=== PATIENT | male | born 1990 | race Caucasian/White ===

== ENCOUNTER 2018-01-11 15:27 | Inpatient (IN) | payer MEDICAID ==
[2018-01-11] MEDS ORDERED: Sodium Chloride 0.9% 1,000 ML IV STA (16:21)
--- NOTE | 2018-01-11 16:38 | ED PDOC ---
HPI: Psych/Substance Abuse Time Seen by Provider: 01/11/18 16:19 Chief Complaint (Nursing): Psychiatric Evaluation Chief Complaint (Provider): OD ED Caveat: Altered Mental Status Additional Complaint(s): Pt presents to ED 1 hour after taking 60 tabs Coricidin Cough & Cold in suicide attempt. Past Medical History Reviewed: Nursing Documentation, Vital Signs Vital Signs: Last Vital Signs Temp 98.0 F 01/11/18 15:48 Pulse 144 H 01/11/18 15:48 Resp 16 01/11/18 15:48 BP 132/70 01/11/18 15:48 Pulse Ox 100 01/11/18 15:48 - Medical History Other PMH: Unknown - Family History Family History: States: Unknown Family Hx - Home Medications Home Medications: Ambulatory Orders Medication Instructions Recorded Fluoxetine HCl [Prozac] 40 mg PO DAILY 01/11/18 amLODIPine [Norvasc] 20 mg PO DAILY 01/11/18 Enoxaparin [Lovenox] 40 mg SC DAILY syr 01/12/18 LORazepam [Ativan] 1 mg IVP Q6 PRN vial 01/12/18 - Allergies Allergies/Adverse Reactions: Allergies Allergy/AdvReac Type Severity Reaction Status Date / Time No Known Allergies Allergy Verified 01/11/18 15:48 Review of Systems Review Of Systems: ROS cannot be obtained secondary to pt's inabilty to answer questions. Physical Exam - Reviewed Nursing Documentation Reviewed: Yes Vital Signs Reviewed: Yes - Physical Exam Appears: Positive for: In Acute Distress (Mild agitation) Head Exam: Positive for: ATRAUMATIC, NORMAL INSPECTION Skin: Positive for: Normal Color, Warm, Dry Eye Exam: Positive for: PERRL, Nystagmus Cardiovascular/Chest: Positive for: Tachycardia. Negative for: Irregularly Irregular Respiratory: Positive for: Normal Breath Sounds Gastrointestinal/Abdominal: Positive for: Normal Exam, Soft. 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 Negative for: Facial Droop - Laboratory Results Result Diagrams: 01/12/18 04:20 01/12/18 04:20 - ECG Interpretation Of ECG: ST @ 128, no ST-T changes. O2 Sat by Pulse Oximetry: 100 Pulse Ox Interpretation: Normal - Critical Care Total Time (In Min): 45 Medical Decision Making Medical Decision Makin yo with OTC OD. - labs - EKG - IVF - Ativan - D50 IVP - 1:1 observation - Crisis evaluation 16:20 Case discussed with Estela @ Poison [facility], recommends labs, EKG (QRS, QT/QTc prolongation), urine output, caution for serotonin syndome, anticholinergic effects, tremors agitation, treat with BZD. 18:35 Findings discussed with Poison Control, recommends BZD prn, repeat EKG in 4-6 hours. 18:55 Pt AAOX3, answering questions. States has h/o HTN and depression, multiple suicide attempts in past. No other ingestions today. + suicidal ideation. No CP, SOB, HALLMAN. Disposition - Clinical Impression Clinical Impression: Dextromethorphan overdose, Chlorpheniramine overdose - Patient ED Disposition Is Patient to be Admitted: Yes - Disposition Disposition Time: 20:21 Condition: STABLE - Pt Status Changed To: Hospital Disposition Of: Inpatient - Admit Certification Admit to Inpatient:: After my assessment, the patient will require hospitalization for at least two midnights. This is because of the severity of symptoms shown, intensity of services needed, and/or the medical risk in this patient being treated as an outpatient. - POA Present On Arrival: None
[2018-01-11] MEDS ORDERED: Dextrose 50% SYRINGE Inj (50 ml) IVP STA (16:51)
[2018-01-11] MEDS ORDERED: Dextrose 50% SYRINGE Inj (50 ml) ONE (17:07)
[2018-01-11 17:16] LABS: BASO # 0.1 K/uL (0.0-0.2); BASO % 0.7 % (0.0-2.0); EOS # 0.2 K/uL (0.0-0.7); EOS % 2.5 % (0.0-4.0); HEMOGLOBIN 14.5 g/dL (12.0-18.0); LYMPH # 2.9 K/uL (1.0-4.3); LYMPH % 35.8 % (20.0-40.0); MEAN CELL VOLUME 81.7 fl (80.0-94.0); MEAN CORPUSCULAR HEMOGLOBIN 26.4 pg (27.0-31.0); MEAN CORPUSCULAR HGB CONC 32.3 g/dL (33.0-37.0); MONO # 0.7 K/uL (0.0-0.8); MONO % 8.2 % (0.0-10.0); NEUT # 4.3 K/uL (1.8-7.0); NEUT % 52.8 % (50.0-75.0); NRBC % 0.1 % (0.0-0.0); RBC 5.5 Mil/uL (4.40-5.90); RED CELL DISTRIBUTION WIDTH 14.4 % (11.5-14.5); WHITE BLOOD COUNT 8.2 K/uL (4.8-10.8)
[2018-01-11 17:24] LABS: ACETAMINOPHEN < 10.0 ug/ml (10.0-30.0); SALICYLATE < 1.0 mg/dl
[2018-01-11 17:26] LABS: ALB/GLOB RATIO 1.2 (1.0-2.1); ALBUMIN 4.7 g/dL (3.5-5.0); ALT/SGPT 41 U/L (21-72); AST/SGOT 34 U/L (17-59); BLOOD UREA NITROGEN 17 mg/dl (9-20); CALCIUM 9.4 mg/dL (8.4-10.2); GFR AFRICAN-AMERICAN > 60; GFR NON-AFRICAN AMERICAN > 60
[2018-01-11 17:43] LABS: PARTIAL THROMBOPLASTIN TIME 36.8 Seconds (25.6-37.1); PROTHROMBIN TIME 11.4 Seconds (9.8-13.1)
[2018-01-11] MEDS ORDERED: Potassium Chloride 20 mEq ER Tab PO STA (17:47)
--- NOTE | 2018-01-11 18:02 | RAD ---
HISTORY: OD COMPARISON: No prior. FINDINGS: LUNGS: No active pulmonary disease. PLEURA: No significant pleural effusion identified, no pneumothorax apparent. CARDIOVASCULAR: Normal. OSSEOUS STRUCTURES: No significant abnormalities. VISUALIZED UPPER ABDOMEN: Normal. OTHER FINDINGS: None. IMPRESSION: No active disease.
[2018-01-11 19:20] LABS: URINE BILIRUBIN NEGATIVE (NEGATIVE); URINE BLOOD NEGATIVE (NEGATIVE); URINE CLARITY CLEAR (Clear); URINE COLOR YELLOW (YELLOW); URINE GLUCOSE (UA) NEG (Normal); URINE LEUKOCYTE ESTERASE NEG Leu/uL (Negative); URINE PROTEIN 30 mg/dL (NEGATIVE); URINE UROBILINOGEN 0.2-1.0 mg/dL (0.2-1.0)
[2018-01-11 19:30] LABS: OPIATES, UR NEGATIVE (NEGATIVE)
[2018-01-11 19:41] LABS: BARBITURATES, UR NEGATIVE (NEGATIVE); BENZODIAZEPINES, UR NEGATIVE (NEGATIVE); PHENCYCLIDINE, UR POSITIVE (NEGATIVE)
[2018-01-11] MEDS ORDERED: Potassium Chloride 20 mEq ER Tab PO ONE (20:23)
[2018-01-12 05:43] LABS: HEMOGLOBIN 13.8 g/dL (12.0-18.0); MEAN CELL VOLUME 81.7 fl (80.0-94.0); MEAN CORPUSCULAR HEMOGLOBIN 26.6 pg (27.0-31.0); MEAN CORPUSCULAR HGB CONC 32.5 g/dL (33.0-37.0); RBC 5.19 Mil/uL (4.40-5.90); RED CELL DISTRIBUTION WIDTH 14.1 % (11.5-14.5); WHITE BLOOD COUNT 9.9 K/uL (4.8-10.8)
[2018-01-12 06:04] LABS: LDL CHOLESTEROL 107 mg/dL (0-129)
[2018-01-12 06:08] LABS: BLOOD UREA NITROGEN 10 mg/dl (9-20); CALCIUM 8.9 mg/dL (8.4-10.2); GFR AFRICAN-AMERICAN > 60; GFR NON-AFRICAN AMERICAN > 60; HDL CHOLESTEROL 43 MG/DL (30-70)
--- NOTE | 2018-01-12 08:42 | CARD ---
APPROVED REPORT EKG Measurement Heart [id number] [place] [id number] <Conclusion> Sinus tachycardia Otherwise normal ECG
--- NOTE | 2018-01-12 08:54 | CARD ---
APPROVED REPORT EKG Measurement Heart [id number] <Conclusion> Sinus tachycardia Possible Left atrial enlargement Borderline ECG
[2018-01-12] MEDS ORDERED: Pneumococcal 23-Valent Vaccine IM ONE (09:00)
[2018-01-12] MEDS ORDERED: Enoxaparin 40 mg Syringe SC SCH (09:00)
--- NOTE | 2018-01-12 10:19 | CP.PCM.HP ---
History of Present Illness - History of Present Illness History of Present Illness: 27 yr old M presented to ED with complaint of suicidal ideation and attempt s/p ingesting 60 tabs Coricidin Cough and Cold. PMHx includes hypertension, depression, multiple suicidal attempts in the past. Patient reports he takes Prozaac. Denies chest pain, SOB, weakness, dizziness, nausea, vomiting, tremors. PMHx included hypertension and obesity. PMD: unknown PMHx: hypertension SurgHx: none FMHx: noncontributory SocHx: denies tobacco/Etoh or drugs Medications: Amlodipine 20mg PO QD Allergies: NKDA ED course: -BP:132/70 mmHg, HR 144bpm, Resp 16, O2 sat 100% on room air, Temp 98.0 F -EKG: sinus tachycardia at 128 bpm -CBC within normal limits, CMP: K+ 3.5, rest within normal limits -Utox: positive for phencyclidine, -Poison control recommended labs, EKG, urine output caution for serotinin syndrome, anticholinergic effectsm tremors/agitation and treat with benzodiazepine PRN; repeat EKG after 4-6 hrs -ED treatment: IV fluids, Ativan, D50 IVP, 1:1 observation, crisis evaluation, acetaminophen < 10, salicylates < 1.0 Present on Admission - Present on Admission Any Indicators Present on Admission: No History of DVT/PE: No History of Uncontrolled Diabetes: No Urinary Catheter: No Decubitus Ulcer Present: No History Surgical Site Infection Following: None Review of Systems - Constitutional Constitutional: absent: Chills - EENT Eyes: absent: Blurred Vision Ears: absent: Disequilibrium, Dizziness Nose/Mouth/Throat: absent: Nasal Congestion, Nasal Discharge - Cardiovascular Cardiovascular: absent: Chest Pain, Dyspnea - Respiratory Respiratory: absent: Cough, Hemoptysis - Gastrointestinal Gastrointestinal: absent: Diarrhea, Heartburn, Hematemesis, Hematochezia - Genitourinary Genitourinary: absent: Difficulty Urinating, Dysuria - Neurological Neurological: absent: Confusion, Numbness, Focal Weakness, Headaches - Psychiatric Psychiatric: Suicidal Ideation. absent: Anxiety, Homicidal Ideation - Endocrine Endocrine: absent: Palpitations, Polydipsia, Polyphagia, Polyuria - Hematologic/Lymphatic Hematologic: absent: Easy Bleeding, Easy Bruising Past Patient History - Past Medical History & Family History Past Medical History?: Yes - Past Social History Smoking Status: Light Smoker < 10 Cigarettes Daily - CARDIAC Hx Cardiac Disorders: Yes Hx Hypertension: Yes - PULMONARY Hx Respiratory Disorders: No - NEUROLOGICAL Hx Neurological Disorder: No - RENAL Hx Chronic Kidney Disease: No - ENDOCRINE/METABOLIC Hx Endocrine Disorders: No - HEMATOLOGICAL/ONCOLOGICAL Hx Blood Disorders: No - INTEGUMENTARY Hx Dermatological Problems: No - MUSCULOSKELETAL/RHEUMATOLOGICAL Hx Musculoskeletal Disorders: No Hx Falls: No - GASTROINTESTINAL Hx Gastrointestinal Disorders: No - GENITOURINARY/GYNECOLOGICAL Hx Genitourinary Disorders: No - PSYCHIATRIC Hx Psychophysiologic Disorder: Yes Hx Anxiety: Yes Hx Depression: Yes Hx Substance Use: No - SURGICAL HISTORY Hx Surgeries: No - ANESTHESIA Hx Anesthesia: No Meds Home Medications: Home Medication List Medication Instructions Recorded Confirmed Type Enoxaparin [Lovenox] 40 mg SC DAILY syr 01/12/18 Rx LORazepam [Ativan] 1 mg IVP Q6 PRN vial 01/12/18 Rx Allergies/Adverse Reactions: Allergies Allergy/AdvReac Type Severity Reaction Status Date / Time No Known Allergies Allergy Verified 01/11/18 15:48 Physical Exam - Constitutional Appears: No Acute Distress - Head Exam Head Exam: ATRAUMATIC, NORMOCEPHALIC - Eye Exam Eye Exam: EOMI, PERRL - ENT Exam ENT Exam: Mucous Membranes Moist - Neck Exam Neck exam: Positive for: Full Rom. Negative for: Lymphadenopathy - Respiratory Exam Respiratory Exam: Clear to Auscultation Bilateral, NORMAL BREATHING PATTERN - Cardiovascular Exam Cardiovascular Exam: REGULAR RHYTHM, +S1, +S2 - GI/Abdominal Exam GI & Abdominal Exam: Normal Bowel Sounds, Soft (obese). absent: Tenderness - Extremities Exam Extremities exam: Positive for: full ROM. Negative for: pedal edema - Back Exam Back exam: absent: CVA tenderness (L), CVA tenderness (R) - Neurological Exam Neurological exam: Alert, CN II-XII Intact (grossly intact), Oriented x3 - Psychiatric Exam Psychiatric exam: Flat Affect, Suicidal Ideation - Skin Skin Exam: Dry, Intact, Normal Color Results - Vital Signs Recent Vital Signs: Last Vital Signs Temp 97.7 F 01/12/18 08:00 Pulse 83 01/12/18 09:40 Resp 20 01/12/18 08:00 BP 150/81 01/12/18 09:40 Pulse Ox 97 01/12/18 08:00 - Labs Result Diagrams: 01/12/18 04:20 01/12/18 04:20 Labs: Laboratory Results - last 24 hr 01/11/18 01/11/18 01/11/18 16:42 17:07 17:07 WBC RBC Hgb Hct MCV MCH MCHC RDW Plt Count MPV Neut % (Auto) Lymph % (Auto) [place] % (Auto) Eos % (Auto) Baso % (Auto) Neut # (Auto) Lymph # (Auto) [place] # (Auto) Eos # (Auto) Baso # (Auto) PT INR APTT Sodium 145 Potassium 3.5 L Chloride 105 Carbon Dioxide 24 Anion Gap 20 BUN 17 Creatinine 0.9 Est GFR ( Amer) > 60 Est GFR (Non-Af Amer) > 60 POC Glucose (mg/dL) 65 Random Glucose 66 L Calcium 9.4 Total Bilirubin 0.6 AST 34 ALT 41 Alkaline Phosphatase 60 Total Protein 8.6 H Albumin 4.7 Globulin 3.9 Albumin/Globulin Ratio 1.2 Triglycerides Cholesterol LDL Cholesterol Direct HDL Cholesterol Vitamin B12 Urine Color Urine Clarity Urine pH Ur Specific [place] Urine Protein Urine Glucose (UA) Urine Ketones Urine Blood Urine Nitrate Urine Bilirubin Urine Urobilinogen Ur Leukocyte Esterase Urine RBC (Auto) Urine Microscopic WBC Salicylates < 1.0 Urine Opiates Screen Urine Methadone Screen Acetaminophen < 10.0 L Ur Barbiturates Screen Ur Phencyclidine Scrn Ur Amphetamines Screen U Benzodiazepines Scrn U Oth Cocaine Metabols U Cannabinoids Screen Alcohol, Quantitative < 10 01/11/18 01/11/18 01/11/18 17:07 17:07 19:09 WBC 8.2 RBC 5.50 Hgb 14.5 Hct 45.0 MCV 81.7 MCH 26.4 L MCHC 32.3 L RDW 14.4 Plt Count 210 MPV 9.0 Neut % (Auto) 52.8 Lymph % (Auto) 35.8 [place] % (Auto) 8.2 Eos % (Auto) 2.5 Baso % (Auto) 0.7 Neut # (Auto) 4.3 Lymph # (Auto) 2.9 [place] # (Auto) 0.7 Eos # (Auto) 0.2 Baso # (Auto) 0.1 PT 11.4 INR 1.0 APTT 36.8 Sodium Potassium Chloride Carbon Dioxide Anion Gap BUN Creatinine Est GFR ( Amer) Est GFR (Non-Af Amer) POC Glucose (mg/dL) Random Glucose Calcium Total Bilirubin AST ALT Alkaline Phosphatase Total Protein Albumin Globulin Albumin/Globulin Ratio Triglycerides Cholesterol LDL Cholesterol Direct HDL Cholesterol Vitamin B12 Urine Color Urine Clarity Urine pH Ur Specific [place] Urine Protein Urine Glucose (UA) Urine Ketones Urine Blood Urine Nitrate Urine Bilirubin Urine Urobilinogen Ur Leukocyte Esterase Urine RBC (Auto) Urine Microscopic WBC Salicylates Urine Opiates Screen Negative Urine Methadone Screen Negative Acetaminophen Ur Barbiturates Screen Negative Ur Phencyclidine Scrn Positive H Ur Amphetamines Screen Negative U Benzodiazepines Scrn Negative U Oth Cocaine Metabols Negative U Cannabinoids Screen Negative Alcohol, Quantitative 01/11/18 01/12/18 01/12/18 19:09 04:20 04:20 WBC 9.9 RBC 5.19 Hgb 13.8 Hct 42.4 MCV 81.7 MCH 26.6 L MCHC 32.5 L RDW 14.1 Plt Count 196 MPV Neut % (Auto) Lymph % (Auto) [place] % (Auto) Eos % (Auto) Baso % (Auto) Neut # (Auto) Lymph # (Auto) [place] # (Auto) Eos # (Auto) Baso # (Auto) PT INR APTT Sodium 141 Potassium 3.6 Chloride 104 Carbon Dioxide 23 Anion Gap 18 BUN 10 Creatinine 0.7 L Est GFR ( Amer) > 60 Est GFR (Non-Af Amer) > 60 POC Glucose (mg/dL) Random Glucose 83 Calcium 8.9 Total Bilirubin AST ALT Alkaline Phosphatase Total Protein Albumin Globulin Albumin/Globulin Ratio Triglycerides 131 Cholesterol 206 H LDL Cholesterol Direct 107 HDL Cholesterol 43 Vitamin B12 647 Urine Color Yellow Urine Clarity Clear Urine pH 6.0 Ur Specific [place] 1.011 Urine Protein 30 Urine Glucose (UA) Neg Urine Ketones Negative Urine Blood Negative Urine Nitrate Negative Urine Bilirubin Negative Urine Urobilinogen 0.2-1.0 Ur Leukocyte Esterase Neg Urine RBC (Auto) 1 Urine Microscopic WBC < 1 Salicylates Urine Opiates Screen Urine Methadone Screen Acetaminophen Ur Barbiturates Screen Ur Phencyclidine Scrn Ur Amphetamines Screen U Benzodiazepines Scrn U Oth Cocaine Metabols U Cannabinoids Screen Alcohol, Quantitative Assessment & Plan - Assessment and Plan (Free Text) Assessment: 27 yr old M admitted for suicidal attempt s/p overdose/ingestion of dextremethorphan with PMHx hypertension, depression and multiple suicidal attempts. 1. Dextromethorphan overdose -acute, stable --Poison control recommended labs, EKG, urine output caution for serotinin syndrome, anticholinergic effectsm tremors/agitation and treat with benzodiazepine PRN; repeat EKG after 4-6 hrs -initial EKG: sinus tachycardia at 128 bpm -admit to telemetry -cardiac monitoring -repeat EKG 2. Suicidal ideation -acute, prior episodes in the past -1:1 observation -psych consult appreciated -continue home medications 3. Hypertension -chronic, controlled -continue home medications -monitor BP 3. DVT prophylaxis -SCD's for now - Date & Time Date: 01/12/18 Time: 07:10
[2018-01-12 13:28] LABS: FOLATE 16.3 ng/mL
--- NOTE | 2018-01-12 14:59 | CP.PCM.PCO ---
Assessment/Plan - Assessment and Plan (Free Text) Assessment: Patient seen and examined this afternoon. VS stable, hr sr80. EKG reviewed, no ekg changes. Labs and [facility] with [facility] Pt cleared from poison control. Patient medically cleared for dc to psych as per Psychiatry recommendations. Discussed with resident with Dr Valerie Vasquez. SW aware to make arrangements to transfer to Psych unit.
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
[2018-01-12 16:14] VITALS: BP 131/82; PULSE 100; RESP 17; TEMP 98.6
--- NOTE | 2018-01-13 09:44 | CARD ---
APPROVED REPORT EKG Measurement Heart [id number] [place] [id number] <Conclusion> Normal sinus rhythm Normal ECG
[2018-01-14 16:48] VITALS: O2SAT 100
== END 2018-01-12 16:16 | DRG 449 ==
LOC: H.ER 15:27 → H.ERHOLD 20:21 → H.TEL 23:43 → H.ERHOLD 01-12 09:18
PROVIDERS: ADMIT Internal Medicine; ATTEND Internal Medicine
PROC: 3E0234Z Introduction of Serum, Toxoid and Vaccine into Muscle, Percutaneous Approach (ICD-10-PCS; principal; 2018-01-12)
DX: T48.3X2A Poisoning by antitussives, intentional self-harm, initial encounter (principal); F19.94 Other psychoactive substance use, unspecified with psychoactive substance-induced mood disorder; Y92.9 Unspecified place or not applicable; F32.9 Major depressive disorder, single episode, unspecified; F43.10 Post-traumatic stress disorder, unspecified; I10 Essential (primary) hypertension; R45.851 Suicidal ideations; F17.210 Nicotine dependence, cigarettes, uncomplicated; Z91.5 Personal history of self-harm; Z23 Encounter for immunization; E66.9 Obesity, unspecified

== ENCOUNTER 2018-06-28 16:23 | Observation (INO) | payer MEDICAID ==
[2018-06-28 16:23] VITALS: BMI 22.4
[2018-06-28 16:30] VITALS: RESP 18
[2018-06-28] MEDS ORDERED: Sodium Chloride 0.9% 1,000 ML IV STA (16:35)
--- NOTE | 2018-06-28 16:40 | ED PDOC ---
HPI: Psych/Substance Abuse Time Seen by Provider: 06/28/18 16:29 Chief Complaint (Nursing): Substance Abuse Chief Complaint (Provider): Substance Abuse History Per: Patient History/Exam Limitations: no limitations Associated Symptoms: Depression, Suicidal Thoughts Additional Complaint(s): 27 year old male, with a past medical history of depression, presents to the ED for substance abuse. Patient admits to ingestion of 5 boxes of 16 tablets of Coricidin 1 hour [employer] due to suicidal ideation. Patient reports he stopped taking antidepressant medications 2 weeks ago. PMD: none Past Medical History Reviewed: Historical Data, Nursing Documentation, Vital Signs Vital Signs: Last Vital Signs Temp 98.2 F 06/28/18 16:27 Pulse 84 06/28/18 16:27 Resp 18 06/28/18 16:27 BP 137/83 06/28/18 16:27 Pulse Ox 98 06/28/18 16:27 - Medical History PMH: Anxiety, Depression, HTN, Post Traumatic Stress Disorder Denies: Diabetes, Hepatitis, HIV, Chronic Kidney Disease, Seizures, Sexually Transmitted Disease - Surgical History Surgical History: No Surg Hx - Family History Family History: States: Unknown Family Hx - Immunization History Hx Tetanus Toxoid Vaccination: Yes Hx Influenza Vaccination: Yes Hx Pneumococcal Vaccination: Yes - Home Medications Home Medications: Ambulatory Orders Medication Instructions Recorded No Known Home Med 06/28/18 - Allergies Allergies/Adverse Reactions: Allergies Allergy/AdvReac Type Severity Reaction Status Date / Time No Known Allergies Allergy Verified 03/19/18 18:11 Review of Systems ROS Statement: Except As Marked, All Systems Reviewed And Found Negative Psych: Positive for: Depression, Suicidal ideation Physical Exam - Reviewed Nursing Documentation Reviewed: Yes Vital Signs Reviewed: Yes - Physical Exam Appears: Positive for: Non-toxic, No Acute Distress Head Exam: Positive for: ATRAUMATIC, NORMOCEPHALIC Skin: Positive for: Normal Color, Warm, Dry Eye Exam: Positive for: Normal appearance Neck: Positive for: Normal, Painless ROM Cardiovascular/Chest: Positive for: Regular Rate, Rhythm Respiratory: Positive for: Normal Breath Sounds. Negative for: Wheezing, Respiratory Distress Gastrointestinal/Abdominal: Positive for: Normal Exam, Soft. Negative for: Tenderness Extremity: Positive for: Normal ROM Neurologic/Psych: Positive for: Alert, Oriented. Negative for: Motor/Sensory Deficits - Laboratory Results Result Diagrams: 06/28/18 16:45 06/28/18 16:45 - ECG O2 Sat by Pulse Oximetry: 98 (RA) Pulse Ox Interpretation: Normal Medical Decision Making Medical Decision Making: Initial Impression: Substance abuse Initial Plan: --ECG --Acetaminophen stat --Alcohol serum stat --CMP --Urine drug screen --Salicylate stat --Troponin stat --CBC --Prothrombin time --Activated charcoal 25gm PO --Sodium chloride 1000mL IV --1:1 observation Poison control contacted. Recommends activated charcoal and IV fluids. Scribe Attestation: Documented by Mor Simpson acting as a scribe for Gage Parrish MD. Provider Scribe Attestation: All medical record entries made by the Scribe were at my direction and personally dictated by me. I have reviewed the chart and agree that the record accurately reflects my personal performance of the history, physical exam, medical decision making, and the department course for this patient. I have also personally directed, reviewed, and agree with the discharge instructions and disposition. Disposition - Clinical Impression Clinical Impression: Suicidal ideation, Drug overdose - Patient ED Disposition Is Patient to be Admitted: Yes - Disposition Disposition Time: 18:26 Condition: FAIR Forms: Jini (Austrian) - Pt Status Changed To: Hospital Disposition Of: Observation - POA Present On Arrival: None
[2018-06-28 16:49] LABS: BASO # 0.1 K/uL (0.0-0.2); BASO % 1.2 % (0.0-2.0); EOS # 0.1 K/uL (0.0-0.7); EOS % 1.7 % (0.0-4.0); HEMOGLOBIN 14.3 g/dL (12.0-18.0); LYMPH # 2.2 K/uL (1.0-4.3); MEAN CELL VOLUME 81.9 fl (80.0-94.0); MEAN CORPUSCULAR HEMOGLOBIN 26.9 pg (27.0-31.0); MEAN CORPUSCULAR HGB CONC 32.8 g/dL (33.0-37.0); MEAN PLATELET VOLUME 9.8 fl (7.2-11.7); MONO # 0.6 K/uL (0.0-0.8); MONO % 7.9 % (0.0-10.0); NEUT % 57.2 % (50.0-75.0); NRBC % 0.2 % (0.0-0.0); RBC 5.33 Mil/uL (4.40-5.90); RED CELL DISTRIBUTION WIDTH 15.1 % (11.5-14.5)
[2018-06-28 16:57] LABS: INR 1.2
[2018-06-28 17:10] LABS: ACETAMINOPHEN < 10.0 ug/ml (10.0-30.0); SALICYLATE < 1.0 mg/dl
[2018-06-28 17:11] LABS: ALB/GLOB RATIO 1.3 (1.0-2.1); ALBUMIN 4.5 g/dL (3.5-5.0); ALT/SGPT 35 U/L (21-72); AST/SGOT 40 U/L (17-59); BLOOD UREA NITROGEN 10 mg/dl (9-20); CALCIUM 9.7 mg/dL (8.4-10.2); GFR NON-AFRICAN AMERICAN > 60
[2018-06-28 17:20] LABS: BARBITURATES, UR NEGATIVE (NEGATIVE); BENZODIAZEPINES, UR POSITIVE (NEGATIVE); OPIATES, UR NEGATIVE (NEGATIVE); PHENCYCLIDINE, UR NEGATIVE (NEGATIVE)
[2018-06-28] MEDS ORDERED: DiphenhydrAMINE 50 mg/ml Inj IVP STA (17:59)
[2018-06-28] MEDS: Sodium Chloride 0.9% 1,000 ML IV SCH (23:08)
--- NOTE | 2018-06-29 00:22 | CP.PCM.PCO ---
Additional Comments - Additional Comments Additional Comments: This play writer was paged by patient's RN due to elevated BP of 180's/107 with HR in 90's. Patient is a 27 year old male with pmhx depression and HTN admitted for ingestion of 80 coricidin tablets for suicidal attempt. Patient denies any headache, dizziness, chest pain, dyspnea, abdominal pain, nausea or vomiting. Patient reports he used to take lisinopril 20 mg for HTN but stopped taking it about 6 months ago. On exam, Repeat BP 173/77, HR 79, RR 16, Temp 99.3 F, pulse ox 95%. Patient sitting comfortably in bed watching TV, not in acute distress. AAO x3. Cardiovascular: RRR, normal s1, s2. Lungs: clear to auscultation B/L, no wheezing. Abdomen: soft, +BS, non-tended. Asymptomatic hypertension Telemonitor shows normal sinus rhythm in 70's. Start lisinopril 20 mg po once c/w lisinopril 20 mg po daily re-evaluate in AM Case d/w with Dr. Rafael Holloway, pgy-2
[2018-06-29 01:16] VITALS: O2SAT 96
--- NOTE | 2018-06-29 07:52 | CARD ---
APPROVED REPORT Date of service: 06/29/2018 EKG Measurement Heart [id number] <Conclusion> Normal sinus rhythm Normal ECG
[2018-06-29] MEDS: Sodium Chloride 0.9% 1,000 ML IV SCH ×2 (08:02→15:31)
--- NOTE | 2018-06-29 09:08 | CP.PCM.CON ---
History of Present Illness - History of Present Illness History of Present Illness: 27 yo male w/ h/o MDD and polysubstance abuse (ETOH, Cocaine, Ecstasy, Marijuana, LSD, PCP) in early remission, presents s/p suicide attempt by ingest 60 pills of over the counter cold medication pt recently discharged from [facility] , non compliant with medications or follow up, having multiple financial stressors and homeless reported continues to have passive suicidal ideation without active plan on the unit Past Patient History - Infectious Disease Hx of Infectious Diseases: None - Past Medical History & Family History Past Medical History?: Yes - Past Social History Smoking Status: Heavy Smoker > 10 Cigarettes Daily - CARDIAC Hx Cardiac Disorders: Yes Hx Hypertension: Yes - PULMONARY Hx Respiratory Disorders: No Hx Tuberculosis: No - NEUROLOGICAL Hx Neurological Disorder: No Hx Seizures: No - HEENT Hx HEENT Problems: No - RENAL Hx Chronic Kidney Disease: No - ENDOCRINE/METABOLIC Hx Endocrine Disorders: No Hx Diabetes Mellitus Type 1: No Hx Diabetes Mellitus Type 2: No - HEMATOLOGICAL/ONCOLOGICAL Hx Blood Disorders: No Hx Human Immunodeficiency Virus (HIV): No - INTEGUMENTARY Hx Dermatological Problems: No - MUSCULOSKELETAL/RHEUMATOLOGICAL Hx Musculoskeletal Disorders: No Hx Falls: No - GASTROINTESTINAL Hx Gastrointestinal Disorders: No - GENITOURINARY/GYNECOLOGICAL Hx Genitourinary Disorders: No Hx Sexually Transmitted Disorders: No - PSYCHIATRIC Hx Psychophysiologic Disorder: Yes Hx Anxiety: Yes Hx Depression: Yes Hx Post Traumatic Stress Disorder: Yes Hx Substance Use: Yes - SURGICAL HISTORY Hx Surgeries: No - ANESTHESIA Hx Anesthesia: Yes Hx Anesthesia Reactions: No Meds Allergies/Adverse Reactions: Allergies Allergy/AdvReac Type Severity Reaction Status Date / Time No Known Allergies Allergy Verified 03/19/18 18:11 - Medications Medications: Current Medications Sodium Chloride (Sodium Chloride 0.9%) 1,000 mls @ 125 mls/hr IV .Q8H [facility] Stop: 06/29/18 22:59 Last Admin: 06/29/18 08:02 Dose: 125 mls/hr Lisinopril (Zestril) 20 mg PO DAILY [facility] Last Admin: 06/29/18 08:33 Dose: 20 mg Results - Vital Signs Recent Vital Signs: Last Vital Signs Temp 98.4 F 06/29/18 08:30 Pulse 65 06/29/18 08:33 Resp 18 06/29/18 08:30 BP 166/94 H 06/29/18 08:33 Pulse Ox 96 06/29/18 08:30 - Labs Result Diagrams: 06/28/18 16:45 06/28/18 16:45 Labs: Laboratory Results - last 24 hr 06/28/18 06/28/18 06/28/18 16:39 16:45 16:45 WBC RBC Hgb Hct MCV MCH MCHC RDW Plt Count MPV Neut % (Auto) Lymph % (Auto) [place] % (Auto) Eos % (Auto) Baso % (Auto) Neut # (Auto) Lymph # (Auto) [place] # (Auto) Eos # (Auto) Baso # (Auto) PT INR Sodium 142 Potassium 4.3 Chloride 109 H Carbon Dioxide 23 Anion Gap 14 BUN 10 Creatinine 0.9 Est GFR ( Amer) > 60 Est GFR (Non-Af Amer) > 60 POC Glucose (mg/dL) 111 H Random Glucose 108 Calcium 9.7 Total Bilirubin 0.5 AST 40 ALT 35 Alkaline Phosphatase 54 Troponin I < 0.0120 Total Protein 8.1 Albumin 4.5 Globulin 3.6 Albumin/Globulin Ratio 1.3 Salicylates < 1.0 Urine Opiates Screen Urine Methadone Screen Acetaminophen < 10.0 L Ur Barbiturates Screen Ur Phencyclidine Scrn Ur Amphetamines Screen U Benzodiazepines Scrn U Oth Cocaine Metabols U Cannabinoids Screen Alcohol, Quantitative < 10 06/28/18 06/28/18 06/28/18 16:45 16:45 16:45 WBC 7.0 RBC 5.33 Hgb 14.3 Hct 43.7 MCV 81.9 MCH 26.9 L MCHC 32.8 L RDW 15.1 H Plt Count 174 MPV 9.8 Neut % (Auto) 57.2 Lymph % (Auto) 32.0 [place] % (Auto) 7.9 Eos % (Auto) 1.7 Baso % (Auto) 1.2 Neut # (Auto) 4.0 Lymph # (Auto) 2.2 [place] # (Auto) 0.6 Eos # (Auto) 0.1 Baso # (Auto) 0.1 PT 14.0 H INR 1.2 Sodium Potassium Chloride Carbon Dioxide Anion Gap BUN Creatinine Est GFR ( Amer) Est GFR (Non-Af Amer) POC Glucose (mg/dL) Random Glucose Calcium Total Bilirubin AST ALT Alkaline Phosphatase Troponin I Total Protein Albumin Globulin Albumin/Globulin Ratio Salicylates Urine Opiates Screen Negative Urine Methadone Screen Negative Acetaminophen Ur Barbiturates Screen Negative Ur Phencyclidine Scrn Negative Ur Amphetamines Screen Negative U Benzodiazepines Scrn Positive U Oth Cocaine Metabols Negative U Cannabinoids Screen Negative Alcohol, Quantitative Assessment & Plan - Assessment and Plan (Free Text) Assessment: major depression recurrent Plan: discontinue 1:1 , pt denied active thoughts of self harm in the hospital pt on medical clearance, to be transferred to psychiatry for stabilization
--- NOTE | 2018-06-29 12:02 | CARD ---
APPROVED REPORT Date of service: 06/29/2018 EKG Measurement Heart [id number] <Conclusion> Normal sinus rhythm Minimal voltage criteria for LVH, may be normal variant Borderline ECG
--- NOTE | 2018-06-29 12:07 | CARD ---
APPROVED REPORT Date of service: 06/28/2018 EKG Measurement Heart [id number] <Conclusion> Normal sinus rhythm Normal ECG
--- NOTE | 2018-06-29 12:09 | CP.PCM.PCO ---
Assessment & Plan - Assessment and Plan (Free Text) Assessment: patient medically cleared by / poison control for d/c to inpt. Psych today pt. aggreable to admission to psych
--- NOTE | 2018-06-29 12:32 | HP ---
HISTORY OF PRESENT ILLNESS: Mr. Melton is a 27-year-old male who was admitted via the emergency room following a suicide attempt after he took 80 Coricidin tablets. He was admitted because of the above. Denies dizziness, headaches, chest pains or shortness of breath or nausea or vomiting. He has a past medical history of hypertension. Also has a history of suicide attempt several months ago for which he was admitted to the hospital and then transferred to the psychiatric unit. He indicates that he is homeless and lives in a usp. FAMILY HISTORY: Noncontributory. SOCIAL HISTORY: He lives in a usp. Denies alcohol or drug use. Denies smoking. REVIEW OF SYSTEMS: Remarkable for depression. PHYSICAL EXAMINATION: GENERAL: The patient is alert, oriented, appears comfortable at present. VITAL SIGNS: Blood pressure on admission was 173/77 with a pulse of 79, respiratory rate is 16. He is febrile. O2 sat 95% on room air. SKIN: Shows fair turgor. HEENT: Pupils are equal, reactive to light and accommodation. Mouth shows fair hygiene. NECK: JVP flat. LUNGS: Clear. HEART: Regular. No murmurs or gallop. ABDOMEN: Soft, nontender, no organomegaly. EXTREMITIES: Show no edema or cyanosis. CENTRAL NERVOUS SYSTEM: Exam is grossly intact. The patient has a blunted affect. IMPRESSION: Suicide attempt via multiple drug ingestion, history of hypertension, history of depression. PLAN: Intravenous hydration, psychiatric evaluation for transfer to the psychiatric [facility]. The patient is medically cleared for transfer once evaluated by Psychiatry. Florencio Nelson MD
[2018-06-29 13:11] VITALS: BP 148/86; PULSE 82; TEMP 98.7
--- NOTE | 2018-06-30 09:29 | CARD ---
APPROVED REPORT Date of service: 06/28/2018 EKG Measurement Heart [id number] ID [id number] <Conclusion> Normal sinus rhythm Normal ECG
== END 2018-06-29 15:18 ==
LOC: H.ER 16:23 → H.ERHOLD 18:24 → H.TEL 22:12
PROVIDERS: ADMIT Internal Medicine Pulmonary Disease; ATTEND Internal Medicine Pulmonary Disease
DX: T50.992A Poisoning by other drugs, medicaments and biological substances, intentional self-harm, initial encounter (principal); I10 Essential (primary) hypertension; Z59.0 Homelessness; F33.9 Major depressive disorder, recurrent, unspecified; Z91.14 Patient's other noncompliance with medication regimen; Z91.19 Patient's noncompliance with other medical treatment and regimen; F17.210 Nicotine dependence, cigarettes, uncomplicated; Z59.9 Problem related to housing and economic circumstances, unspecified; R21 Rash and other nonspecific skin eruption
CPT/HCPCS: 80053; 80320; 80324; 80329; 80345; 80346; 80349; 80353; 80358; 80361; 82948; 83992; 84484; 85025; 85610; 93005; 96361; 96372; 96374; 96375; 99285; G0378; J1200; J2060; J2930; J7030

== ENCOUNTER 2018-06-29 15:44 | Inpatient (IN) | payer MEDICAID ==
[2018-06-29 16:03] VITALS: BMI 35.1
[2018-06-29] MEDS ORDERED: Alum-Mag Hydrox-Simethicone Susp (30 mL) PO PRN (16:38)
[2018-06-29] MEDS ORDERED: DiphenhydrAMINE 50 mg/ml Inj IM PRN (16:38)
[2018-06-29] MEDS ORDERED: Magnesium Hydroxide Susp 30 ml UD PO PRN (16:38)
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
[2018-06-30 06:16] LABS: BASO # 0.1 K/uL (0.0-0.2); BASO % 0.7 % (0.0-2.0); EOS # 0.1 K/uL (0.0-0.7); HEMOGLOBIN 13.9 g/dL (12.0-18.0); LYMPH # 3.7 K/uL (1.0-4.3); LYMPH % 34.8 % (20.0-40.0); MEAN CORPUSCULAR HEMOGLOBIN 26.7 pg (27.0-31.0); MEAN CORPUSCULAR HGB CONC 32.2 g/dL (33.0-37.0); MEAN PLATELET VOLUME 10.1 fl (7.2-11.7); MONO % 9.4 % (0.0-10.0); NEUT # 5.8 K/uL (1.8-7.0); NEUT % 54.1 % (50.0-75.0); NRBC % 0.2 % (0.0-0.0); RBC 5.19 Mil/uL (4.40-5.90); RED CELL DISTRIBUTION WIDTH 15.3 % (11.5-14.5); WHITE BLOOD COUNT 10.6 K/uL (4.8-10.8)
[2018-06-30 06:32] LABS: ALB/GLOB RATIO 1.5 (1.0-2.1); ALBUMIN 4.6 g/dL (3.5-5.0); ALT/SGPT 44 U/L (21-72); AST/SGOT 35 U/L (17-59); BLOOD UREA NITROGEN 18 mg/dl (9-20); CALCIUM 9.4 mg/dL (8.4-10.2); GFR NON-AFRICAN AMERICAN > 60; HDL CHOLESTEROL 44 MG/DL (30-70)
[2018-06-30 06:46] LABS: T4 5.21 ug/dl (5.5-11.0)
[2018-06-30 06:51] LABS: LDL CHOLESTEROL 126 mg/dL (0-129)
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
--- NOTE | 2018-07-01 16:23 | PCM.PYCHPN ---
Psychiatric Progress Note - Psychiatric Progress Note Patient seen today, length of contact: pt evaluated discusssed with team chart reviewed Patient Chief Complaint: I still feel down Problems Identified/Issues Discussed: pt evaluated, continues to report depressed mood anhedonia, low energy, poor motivation, discussed increasing dose of wellbutrin, no reported side effects, encouraged to attend groups pt denied any current suicidal or homicidal ideation denied perceptual disturbances Medical Problems: multiple hospitalizations, history of non compliance DSM 5 Symptoms Update: major depression recurrent severe without psychotic features Medication Change: Yes (increase wellbutrin) Medical Record Reviewed: Yes Mental Status Examination - Cognitive Function Orientation: Person, Place, Situation, Time Memory: Intact Attention: WNL Concentration: WNL Association: WNL Fund of Knowledge: WNL - Mood Mood: Depressed, Anxious - Affect Affect: Constricted, Depressed - Speech Speech: Soft - Formal Thought Process Formal Thought Process: Circumstantial - Suicidal Ideation Suicidal Ideation: No - Homicidal Ideation Homicidal Ideation: No Goal/Treatment Plan - Goal/Treatment Plan Need for Continued Stay: Severe depression anxiety, Discharge may exacerbated symptoms Progress Toward Problem(s) and Goals/Treatment Plan: increase wellbutrin 150mg daily , increase gradually abilify 5mg CBT motivational and group therapy
[2018-07-02] MEDS: buPROPion SR 150 MG TABLET PO SCH (09:37)
--- NOTE | 2018-07-02 11:54 | PCM.PYCHPN ---
Psychiatric Progress Note - Psychiatric Progress Note Patient seen today, length of contact: pt evaluated discusssed with team chart reviewed Patient Chief Complaint: I know I need therapy Problems Identified/Issues Discussed: pt evaluated, reported feeling less depressed with the increase in wellbutrin, no reported side effects, motivational therapy provided, discussed with pt the need to continue with therapy on discharge,encouraged to attend groups, pt denied any current thoughts of self harm , denied perceptual disturbances Medical Problems: multiple hospitalizations, history of non compliance DSM 5 Symptoms Update: major depression Medication Change: No (increase wellbutrin) Medical Record Reviewed: Yes Mental Status Examination - Cognitive Function Orientation: Person, Place, Situation, Time Memory: Intact Attention: WNL Concentration: WNL Association: WNL Fund of Knowledge: WNL - Mood Mood: Depressed, Anxious - Affect Affect: Constricted, Depressed - Speech Speech: Soft - Formal Thought Process Formal Thought Process: Circumstantial - Suicidal Ideation Suicidal Ideation: No - Homicidal Ideation Homicidal Ideation: No Goal/Treatment Plan - Goal/Treatment Plan Need for Continued Stay: Severe depression anxiety, Discharge may exacerbated symptoms Progress Toward Problem(s) and Goals/Treatment Plan: wellbutrin 150mg daily , abilify 5mg CBT motivational and group therapy referral to partial program on discharge
--- NOTE | 2018-07-02 14:41 | CP.PCM.CON ---
History of Present Illness - History of Present Illness History of Present Illness: 27 yr old male admitted to the medical floor because of suicide attempt via drug od.he is referred for medical followup. History of hypertension and prior suide attempt with depression. Past Patient History - Infectious Disease Hx of Infectious Diseases: None - Past Medical History & Family History Past Medical History?: Yes - Past Social History Smoking Status: Heavy Smoker > 10 Cigarettes Daily - CARDIAC Hx Cardiac Disorders: Yes Hx Hypertension: Yes - PULMONARY Hx Respiratory Disorders: No Hx Tuberculosis: No - NEUROLOGICAL Hx Neurological Disorder: No Hx Seizures: No - HEENT Hx HEENT Problems: No - RENAL Hx Chronic Kidney Disease: No - ENDOCRINE/METABOLIC Hx Endocrine Disorders: No Hx Diabetes Mellitus Type 1: No Hx Diabetes Mellitus Type 2: No - HEMATOLOGICAL/ONCOLOGICAL Hx Blood Disorders: No Hx Human Immunodeficiency Virus (HIV): No - INTEGUMENTARY Hx Dermatological Problems: No - MUSCULOSKELETAL/RHEUMATOLOGICAL Hx Musculoskeletal Disorders: No Hx Falls: No - GASTROINTESTINAL Hx Gastrointestinal Disorders: No - GENITOURINARY/GYNECOLOGICAL Hx Genitourinary Disorders: No Hx Sexually Transmitted Disorders: No - PSYCHIATRIC Hx Anxiety: No Hx Bipolar Disorder: Yes Hx Depression: Yes Hx Substance Use: Yes - SURGICAL HISTORY Hx Surgeries: No - ANESTHESIA Hx Anesthesia: Yes Hx Anesthesia Reactions: No Meds Allergies/Adverse Reactions: Allergies Allergy/AdvReac Type Severity Reaction Status Date / Time No Known Allergies Allergy Verified 03/19/18 18:11 - Medications Medications: Current Medications Acetaminophen (Tylenol 325mg Tab) 650 mg PO Q4 PRN PRN Reason: Pain, moderate (4-7) Al Hydrox/Mg Hydrox/Simethicone (Maalox Plus 30 Ml) 30 ml PO Q4 PRN PRN Reason: Dyspepsia Aripiprazole (Abilify) 5 mg PO HS [facility] Last Admin: 07/01/18 21:01 Dose: 5 mg Bupropion HCl (Wellbutrin Sr 150 Mg) 150 mg PO DAILY [facility] Last Admin: 07/02/18 09:37 Dose: 150 mg Diphenhydramine HCl (Benadryl) 50 mg IM Q6 PRN PRN Reason: Extrapyramidal S/S Unable PO Diphenhydramine HCl (Benadryl) 50 mg PO HS PRN PRN Reason: Insomnia Last Admin: 07/01/18 21:01 Dose: 50 mg Haloperidol (Haldol) 5 mg PO Q4 PRN PRN Reason: Agitation Last Admin: 06/29/18 23:14 Dose: 5 mg Haloperidol Lactate (Haldol) 5 mg IM Q4 PRN PRN Reason: Agitation, Unable to Take PO Hydroxyzine Pamoate (Vistaril) 50 mg PO Q8 PRN PRN Reason: Anxiety Last Admin: 07/01/18 02:27 Dose: 50 mg Lisinopril (Zestril) 20 mg PO DAILY [facility] Last Admin: 07/02/18 09:37 Dose: 20 mg Lorazepam (Ativan) 2 mg IM Q4 PRN PRN Reason: Anxiety/Agitation,Unable PO Magnesium Hydroxide (Milk Of Magnesia) 30 ml PO HS PRN PRN Reason: Constipation Physical Exam - Constitutional Appears: No Acute Distress - Head Exam Head Exam: ATRAUMATIC, NORMAL INSPECTION, NORMOCEPHALIC - Eye Exam Eye Exam: EOMI, Normal appearance, PERRL Pupil Exam: NORMAL ACCOMODATION, PERRL - ENT Exam ENT Exam: Mucous Membranes Moist, Normal Exam - Neck Exam Neck exam: Positive for: Normal Inspection - Respiratory Exam Respiratory Exam: Clear to Auscultation Bilateral, NORMAL BREATHING PATTERN - Cardiovascular Exam Cardiovascular Exam: REGULAR RHYTHM - GI/Abdominal Exam GI & Abdominal Exam: Normal Bowel Sounds, Soft. absent: Tenderness - Rectal Exam Rectal Exam: NORMAL INSPECTION - Exam Exam: NORMAL INSPECTION - Extremities Exam Extremities exam: Positive for: normal inspection - Back Exam Back exam: NORMAL INSPECTION - Neurological Exam Neurological exam: Alert, CN II-XII Intact, Normal Gait, Oriented x3, Reflexes Normal - Psychiatric Exam Psychiatric exam: Depressed, Flat Affect - Skin Skin Exam: Dry, Intact, Normal Color, Warm Results - Vital Signs Recent Vital Signs: Last Vital Signs Temp 97.7 F 07/02/18 09:00 Pulse 93 H 07/02/18 09:00 Resp 20 07/02/18 09:00 BP 153/97 H 07/02/18 09:37 Pulse Ox - Labs Result Diagrams: 06/30/18 05:30 06/30/18 05:30 Assessment & Plan - Assessment and Plan (Free Text) Assessment: depression hypertension Plan: agree with present rx - Date & Time Date: 07/02/18 Time: 14:42
[2018-07-03] MEDS: buPROPion SR 150 MG TABLET PO SCH (09:33)
--- NOTE | 2018-07-03 12:44 | PCM.PYCHPN ---
Psychiatric Progress Note - Psychiatric Progress Note Patient seen today, length of contact: pt evaluated discusssed with team chart reviewed Patient Chief [facility] Problems Identified/Issues Discussed: pt evaluated, reported feeling less depressed no reported side effects, motivational therapy provided in reference to substance use, discussed with pt the need to continue with therapy on discharge,pt motivated to start in [facility] , denied any current thoughts of self harm , denied perceptual disturbances Medical Problems: multiple hospitalizations, history of non compliance DSM 5 Symptoms Update: major depression Medication Change: No Medical Record Reviewed: Yes Mental Status Examination - Cognitive Function Orientation: Person, Place, Situation, Time Memory: Intact Attention: WNL Concentration: WNL Association: WNL Fund of Knowledge: WNL - Mood Mood: Depressed, Anxious - Affect Affect: Constricted, Depressed - Speech Speech: Soft - Formal Thought Process Formal Thought Process: Circumstantial - Suicidal Ideation Suicidal Ideation: No - Homicidal Ideation Homicidal Ideation: No Goal/Treatment Plan - Goal/Treatment Plan Need for Continued Stay: Severe depression anxiety, Discharge may exacerbated symptoms Progress Toward Problem(s) and Goals/Treatment Plan: wellbutrin 150mg daily , abilify 5mg CBT motivational and group therapy referral to partial program on discharge
[2018-07-04] MEDS: buPROPion SR 150 MG TABLET PO SCH (08:52)
--- NOTE | 2018-07-04 12:18 | PCM.PYCHPN ---
Psychiatric Progress Note - Psychiatric Progress Note Patient seen today, length of contact: pt evaluated discusssed with team chart reviewed Patient Chief Complaint: I am feeling better Problems Identified/Issues Discussed: pt evaluated, reported feeling less depressed , brighter affect no reported side effects, motivational therapy provided in reference to substance use, discussed with pt the need to continue with therapy on discharge,pt motivated to start in [facility] , denied any current thoughts of self harm , denied perceptual disturbances Medical Problems: multiple hospitalizations, history of non compliance DSM 5 Symptoms Update: major depression cannabis use Medication Change: No Medical Record Reviewed: Yes Mental Status Examination - Cognitive Function Orientation: Person, Place, Situation, Time Memory: Intact Attention: WNL Concentration: WNL Association: WNL Fund of Knowledge: WNL - Mood Mood: Depressed, Anxious - Affect Affect: Constricted, Depressed - Speech Speech: Soft - Formal Thought Process Formal Thought Process: Circumstantial - Suicidal Ideation Suicidal Ideation: No - Homicidal Ideation Homicidal Ideation: No Goal/Treatment Plan - Goal/Treatment Plan Need for Continued Stay: Severe depression anxiety, Discharge may exacerbated symptoms Progress Toward Problem(s) and Goals/Treatment Plan: wellbutrin 150mg daily , abilify 5mg CBT motivational and group therapy referral to partial program on discharge
--- NOTE | 2018-07-05 08:20 | CP.PCM.PN ---
Subjective - Date & Time of Evaluation Date of Evaluation: 07/05/18 Time of Evaluation: 08:20 - Subjective Subjective: FEELS WELL NO APPARENT DISTRESS STATES THAT HE IS GOING HOME TODAY NO NEW PHYSICAL FINDINGS VSS OK TO CONTINUE RX ORDERED Objective - Vital Signs/Intake and Output Vital Signs (last 24 hours): Temp Pulse Resp BP Pulse Ox 98.8 F 104 H 18 129/91 H 07/04/18 17:00 07/04/18 17:00 07/04/18 17:00 07/04/18 17:00 - Medications Medications: Current Medications Acetaminophen (Tylenol 325mg Tab) 650 mg PO Q4 PRN PRN Reason: Pain, moderate (4-7) Al Hydrox/Mg Hydrox/Simethicone (Maalox Plus 30 Ml) 30 ml PO Q4 PRN PRN Reason: Dyspepsia Aripiprazole (Abilify) 5 mg PO HS [facility] Last Admin: 07/04/18 21:22 Dose: 5 mg Bupropion HCl (Wellbutrin Sr 150 Mg) 150 mg PO DAILY [facility] Last Admin: 07/04/18 08:52 Dose: 150 mg Diphenhydramine HCl (Benadryl) 50 mg IM Q6 PRN PRN Reason: Extrapyramidal S/S Unable PO Diphenhydramine HCl (Benadryl) 50 mg PO HS PRN PRN Reason: Insomnia Last Admin: 07/04/18 21:22 Dose: 50 mg Haloperidol (Haldol) 5 mg PO Q4 PRN PRN Reason: Agitation Last Admin: 07/04/18 21:22 Dose: 5 mg Haloperidol Lactate (Haldol) 5 mg IM Q4 PRN PRN Reason: Agitation, Unable to Take PO Hydroxyzine Pamoate (Vistaril) 50 mg PO Q8 PRN PRN Reason: Anxiety Last Admin: 07/04/18 11:48 Dose: 50 mg Lisinopril (Zestril) 20 mg PO DAILY [facility] Last Admin: 07/04/18 08:52 Dose: 20 mg Magnesium Hydroxide (Milk Of Magnesia) 30 ml PO HS PRN PRN Reason: Constipation - Labs Labs: 06/30/18 05:30 06/30/18 05:30
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
[2018-07-05 09:16] VITALS: BP 130/94
[2018-07-05] MEDS: buPROPion SR 150 MG TABLET PO SCH (09:16)
[2018-07-05 09:52] VITALS: PULSE 118; RESP 20; TEMP 97.7
== END 2018-07-05 14:27 | disposition home or self-care (01) | DRG 430 ==
LOC: H.PSYCH 16:04
PROVIDERS: ADMIT Psychiatry & Neurology Psychiatry; ATTEND Psychiatry & Neurology Psychiatry
PROC: GZHZZZZ Group Psychotherapy (ICD-10-PCS; principal; 2018-06-29)
PROC: HZ57ZZZ Individual Psychotherapy for Substance Abuse Treatment, Motivational Enhancement (ICD-10-PCS; 2018-06-29)
PROC: GZ58ZZZ Individual Psychotherapy, Cognitive-Behavioral (ICD-10-PCS; 2018-06-29)
DX: F33.2 Major depressive disorder, recurrent severe without psychotic features (principal); F43.10 Post-traumatic stress disorder, unspecified; R45.851 Suicidal ideations; I10 Essential (primary) hypertension; Z91.410 Personal history of adult physical and sexual abuse; F12.90 Cannabis use, unspecified, uncomplicated; F41.9 Anxiety disorder, unspecified; F17.210 Nicotine dependence, cigarettes, uncomplicated